=== PATIENT | female | born 2005 | race Caucasian/White ===

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

== ENCOUNTER 2025-01-01 00:03 | Emergency (ER) | payer MEDICAID, SELFPAY ==
--- OUTSIDE RECORDS SUMMARY | 2025-01-01 00:05 | XMS_ITS | Continuity of Care Document ---
Author Organization [facility] Address [address] [address] [place] [address] Phone Care Team Providers Care Gas Engine Operator Compressors Name Role Phone Unavailable Unavailable Unavailable Advance Directives Directive Yes / No Effective Date File Name No Information Encounters Encounter Description Practice Location Reason(s) For Visit Diagnoses Date Provider Providers Copied on Encounter [facility], [address] [address], [place], [place], [id number], [place] tel:[phone] [facility] No Information No Information Referring Provider: Referral Self, USE FOR SELF REFERRALS. Family History Family Member Type Diagnosis Age At Onset No Information Payers Payer name Insurance type Covered alliance party ID Authoriza tion(s) No Information Social History Type Description Quantity Date Captured Comments Sex Female Smoking Status No Information Chief Complaint And Reason For Visit No Information Reason For Referral Reason For Referral No Information History Of Present Illness Encounter Date Complaint History Of Prese nt Illness No Information Functional Status Date Functional Assessmen t No Information Instructions Date Instruction Additional Infor mation No Information Assessments Type Assessment Date No Information Patient Care Teams Name Effective Dates (start - stop) Status Members No Information
--- OUTSIDE RECORDS SUMMARY | 2025-01-01 00:05 | XMS_ITS | Clinical Summary ---
Author Organization [facility] Address [place], [place] [address] Care Team Providers Care Connection Worker Name Role Phone Derik Leahy MD Primary Care Provider Allergies No known active allergies Medications DULoxetine (CYMBALTA) 60 mg Delayed-release capsule Take 60 mg by mouth once daily. Active medication order composer Active Active Problems No known active problems Encounters Date Type Department Care Team Description 11/12/2024 Telephone [facility] [address] [place] [id number] Zenobia Burnett PA Results (LVM instructing to call back to review test results. Call back number left. //Anitra Luke LPN 11/12/2024 1:53 PM ) 11/10/2024 2:45 PM MALE IMPERSONATOR Office Visit [facility] [id number] [place] [phone] Lorri Mason NP Vaginal Problem 11/10/2024 Travel 11/02/2024 2:25 PM MALE IMPERSONATOR Office Visit [facility] [address] [place] [id number] Kalpana Birch MD Ear Problem 11/02/2024 Travel from Last 3 Months Social History Tobacco Use Types Packs/Day Years Used Date Smoking Tobacco: Never Passive Smoke Exposure: Never Smokeless Tobacco: Never Tobacco Cessation:Counseling Given: Not Answered Alcohol Use Standard Drinks/Week Comments Yes 0 (1 standard drink = 0.6 oz pur e alcohol) occassionally Social Connections Answer Date Recorded Do you often feel lonely or isolated from those around you? 0 11/02/2024 Financial Resource Strain Answer Date R ecorded Difficulty of Paying Living Expenses 3 12/28/2024 Difficulty of Paying Living Expenses Not on file 12/28/2024 Food Insecurity Answer Date Recorded Do you worry your food will run out before you are able to buy more? 1 11/02/2024 Transportation Needs Answer Date Record ed Does lack of transportation keep you from medica l appointments? 1 11/02/2024 Does lack of transportation keep you from work, meetings or getting things that you need? 1 11/02/2024 Housing Stability Answer Date Recorded What is your housing situation today? 1 11/02/2024 Utilities Answer Date Recorded Do you have trouble paying f or utilities (for example, heat, electricity, water, phone)? 1 11/02/2024 Comments No Sex and Gender Information Value Date Recorded Sex Assigned at Not on file Legal Sex Female 7:33 AM MALE IMPERSONATOR Gender Identity Not on file Sexual Orientation Not on file Obstetrics History Last Filed Vital Signs Vital Sign Reading Time Taken Comments Blood Pressure 131/85 11/10/2024 2:47 PM MALE IMPERSONATOR Pulse 117 11/10/2024 2:47 PM MALE IMPERSONATOR Temperature 36.2 C (97.2 F) 11/10/2024 2:47 PM MALE IMPERSONATOR Respiratory Rate 16 11/10/2024 2:47 PM MALE IMPERSONATOR Oxygen Saturation 100% 11/10/2024 2:47 PM MALE IMPERSONATOR Inhaled Oxygen Concentration - - Weight 66.8 kg (147 lb 3.2 oz) 11/02/2024 2:41 P M MALE IMPERSONATOR Height - - Body Mass Index - - Plan of Treatment Health Maintenance Due Date Last Done Comments Well Child Check for age 3-20 03/18/2008 Tdap 2016 Depression screening for age 12+ 2017 HIV for age 15-65 2020 HPV series for age 9-26 (1 - 3-dose series) 2020 BMI (ht and wt on same day) for age 18+ 2023 Hepatitis C screening for ag e 18-79 2023 COVID-19 vaccine series ( season) 2024 Influenza for age 9-49 07/28/2024 Chlamydia for age 16-24 11/10/2025 11/10/2024 Meningococcal series for age 11-21 Aged Out No longer eligible based on patient's age to complete this topic Pneumococcal series for age 6-49 Aged Out No longer eligible based on patient's age to complete this topic Procedures Procedure Name Priority Date/Time Associated Diagnosis Comments URINE POCT Routine 11/10/2024 3:58 PM MALE IMPERSONATOR UTI (urinary tract infection), uncomplicated Vaginal itching UA W/ SEDIMENT EXAM REFLEXED PER CRITERIA STAT 11/10/2024 3:56 PM MALE IMPERSONATOR UTI (urinary tract infection), uncomplicated TRICHOMONAS, PAKO, AND BACTERIAL VAGINOSIS BY KENDRA Patient wait 11/10/2024 3:55 PM MALE IMPERSONATOR UTI (urinary tract infection), uncomplicated GC CHLAMYDIA TRACH PROBE Patient wait 11/10/2024 3:55 PM MALE IMPERSONATOR UTI (urinary tract infection), uncomplicated URINE CULTURE Routine 11/10/2024 3:55 PM MALE IMPERSONATOR UTI (urinary tract infection), uncomplicated from Last 3 Months Results * URINE POCT (11/10/2024 3:58 PM MALE IMPERSONATOR) POC HCG URINE NEGATIVE NEGATIVE [facility] Urine URINE SPECIMEN / Unknown 11/10/2024 3:58 PM MALE IMPERSONATOR 11/10/2024 3:58 PM MALE IMPERSONATOR Lorri Mason NP URINE Final Result [facility] [address] [place] [address], [place] [facility] [address] [place] [address] * (ABNORMAL) UA W/ SEDIMENT EXAM REFLEXED PER CRITERIA [07244.2] (11/10/2024 3:56 PM MALE IMPERSONATOR) COLOR YELLOW YELLOW [facility]) APPEARANCE CLEAR CLEAR [facility]) SPECIFIC GRAVITY 1.025 1.001 - 1.035 [facility]) PH 7.0 5.0 - 8.0 [facility]) GLUCOSE NEGATIVE NEGATIVE [facility]) BILIRUBIN NEGATIVE NEGATIVE [facility]) KETONES TRACE(A) NEGATIVE [facility]) OCCULT BLOOD NEGATIVE NEGATIVE [facility]) PROTEIN TRACE(A) NEGATIVE [facility]) NITRITE NEGATIVE NEGATIVE [facility]) LEUKOCYTE ESTERASE 1+(A) NEGATIVE [facility]) WBC UA 6-10(A) < OR = 5 /HPF [facility] RBC UA 0-2 < OR = 2 /HPF [facility]) SQUAMOUS EPITHELIAL CELLS UA 0-5 < OR = 5 /HPF [facility]) BACTERIA UA MANY(A) NONE SEEN /HPF [facility]) COMMENTS UA MODERATE MUCOUS THREADS [facility]) NOTE UA [facility]) Comment: This urine was analyzed for the presence of WBC, RBC, bacteria, casts, and other formed elements. Only those elements seen were reported. Urine URINE SPECIMEN / Unknown 11/10/2024 3:56 PM MALE IMPERSONATOR 11/10/2024 3:57 PM MALE IMPERSONATOR Lorri Mason NP URINE Final Result [facility] [address] [place] [address], [facility] (Urgent Care) [address] [place] [address] * (ABNORMAL) Vaginal-TRICHOMONAS, PAKO, AND BACTERIAL VAGINOSIS BY KENDRA (11/10/2024 3:55 PM MALE IMPERSONATOR) PAKO SPECIES Positive(A) Negative 11/11/20 3:18 PM MALE IMPERSONATOR [facility] PAKO GLABRATA Negative Negative 11/11/2024 3:18 PM MALE IMPERSONATOR [facility] TRICHOMONAS VVA Negative Negative 3:18 PM MALE IMPERSONATOR [facility] BACTERIAL VAGINOSIS Negative Negative 11/11/2024 3:18 PM MALE IMPERSONATOR [facility] Other VAGINAL SWAB / Unknown Non-Blood / Unknown 11/10/2024 3:55 PM MALE IMPERSONATOR 11/10/2024 3:55 PM MALE IMPERSONATOR us Lorri Mason NP MICROBIOLOGY Final Result Performing Organization Address City/[facility]/ZIP Co de Phone Number [facility] [address] [place] [phone], [place] * Vaginal GC CHLAMYDIA TRACH PROBE (11/10/2024 3:55 PM MALE IMPERSONATOR) CHLAMYDIA PROBE Negative 3:50 PM MALE IMPERSONATOR [facility] N GONORRHOEAE PROBE Negative 11/11/2024 3:50 PM MALE IMPERSONATOR [facility] Other VAGINAL SWAB / Unknown Non-Blood / Unknown 11/10/2024 3:55 PM MALE IMPERSONATOR 11/10/2024 3:55 PM MALE IMPERSONATOR us Lorri Mason NP MICROBIOLOGY Final Result [facility] [address] [place] [address], [place] * URINE CULTURE [75922.2] (11/10/2024 3:55 PM MALE IMPERSONATOR) CULTURE <10,000 CFU/mL multiple organisms 11/11/2024 6:56 PM MALE IMPERSONATOR [facility] Urine URINE SPECIMEN / Unknown Non-Blood / Unknown 11/10/2024 3:55 PM MALE IMPERSONATOR 11/10/2024 3:55 PM MALE IMPERSONATOR us Lorri Mason NP MICROBIOLOGY Final Result [facility] [address] [place] [address], [place] from Last 3 Months Insurance [facility] Care Teams Connection Worker Relationship Specialty Start Date End Date Derik Leahy MD [address], [address] [address] PCP - General 11/14/08
[2025-01-01 00:07] VITALS: BP 125/78; PULSE 91; RESP 18; TEMP 36.7; O2SAT 99; BMI 22.9
--- OUTSIDE RECORDS SUMMARY | 2025-01-01 00:35 | XMS_ITS | Clinical Summary ---
Author Organization [facility] Address [place], [place] [address] Care Team Providers Care Evp Of Products & Co Founder Name Role Phone Derik Leahy MD Primary Care Provider Allergies No known active allergies Medications DULoxetine (CYMBALTA) 60 mg Delayed-release capsule Take 60 mg by mouth once daily. Active medication order composer Active Active Problems No known active problems Encounters Date Type Department Care Team Description 11/12/2024 Telephone [facility] [address] [place] [phone] Zenobia Burnett PA Results (LVM instructing to call back to review test results. Call back number left. //Anitra Luke LPN 11/12/2024 1:53 PM ) 11/10/2024 2:45 PM SIGHT MOUNTER Office Visit [facility] [id number] [place] [phone] Lorri Mason NP Vaginal Problem 11/10/2024 Travel 11/02/2024 2:25 PM SIGHT MOUNTER Office Visit [facility] [address] [place] [phone] Kalpana Birch MD Ear Problem 11/02/2024 Travel [...] on file Legal Sex Female 7:33 AM SIGHT MOUNTER Gender Identity Not on file Sexual Orientation Not on file Obstetrics History Last Filed Vital Signs Vital Sign Reading Time Taken Comments Blood Pressure 131/85 11/10/2024 2:47 PM SIGHT MOUNTER Pulse 117 11/10/2024 2:47 PM SIGHT MOUNTER Temperature 36.2 C (97.2 F) 11/10/2024 2:47 PM SIGHT MOUNTER Respiratory Rate 16 11/10/2024 2:47 PM SIGHT MOUNTER Oxygen Saturation 100% 11/10/2024 2:47 PM SIGHT MOUNTER Inhaled Oxygen Concentration - - Weight 66.8 kg (147 lb 3.2 oz) 11/02/2024 2:41 P M SIGHT MOUNTER Height - - Body Mass Index - [...] Comments URINE POCT Routine 11/10/2024 3:58 PM SIGHT MOUNTER UTI (urinary tract infection), uncomplicated Vaginal itching UA W/ SEDIMENT EXAM REFLEXED PER CRITERIA STAT 11/10/2024 3:56 PM SIGHT MOUNTER UTI (urinary tract infection), uncomplicated TRICHOMONAS, PAKO, AND BACTERIAL VAGINOSIS BY KENDRA Patient wait 11/10/2024 3:55 PM SIGHT MOUNTER UTI (urinary tract infection), uncomplicated GC CHLAMYDIA TRACH PROBE Patient wait 11/10/2024 3:55 PM SIGHT MOUNTER UTI (urinary tract infection), uncomplicated URINE CULTURE Routine 11/10/2024 3:55 PM SIGHT MOUNTER UTI (urinary tract infection), uncomplicated from Last 3 Months Results * URINE POCT (11/10/2024 3:58 PM SIGHT MOUNTER) POC HCG URINE NEGATIVE [facility] Urine URINE SPECIMEN / Unknown 11/10/2024 3:58 PM SIGHT MOUNTER 11/10/2024 3:58 PM SIGHT MOUNTER Lorri Mason NP URINE Final Result [facility] [address] [place] [address], [place] [facility] [address] [place] [address] * (ABNORMAL) UA W/ SEDIMENT EXAM REFLEXED PER CRITERIA [30631.2] (11/10/2024 3:56 PM SIGHT MOUNTER) COLOR YELLOW YELLOW [facility]) APPEARANCE CLEAR CLEAR [facility]) SPECIFIC GRAVITY 1.025 1.001 - 1.035 [facility]) PH 7.0 5.0 - 8.0 [facility]) GLUCOSE NEGATIVE NEGATIVE [facility]) BILIRUBIN NEGATIVE NEGATIVE [facility]) KETONES TRACE(A) NEGATIVE [facility]) OCCULT BLOOD NEGATIVE NEGATIVE [facility]) PROTEIN TRACE(A) NEGATIVE [facility]) NITRITE NEGATIVE NEGATIVE [facility]) LEUKOCYTE ESTERASE 1+(A) NEGATIVE [facility]) WBC UA 6-10(A) < OR = 5 /HPF [facility]) RBC UA 0-2 < OR = 2 /HPF [facility]) SQUAMOUS EPITHELIAL CELLS UA 0-5 < OR = 5 /HPF [facility]) BACTERIA UA MANY(A) NONE SEEN /HPF [facility]) COMMENTS UA MODERATE MUCOUS THREADS [facility]) NOTE UA [facility]) Comment: This urine was analyzed for the presence of WBC, RBC, bacteria, casts, and other formed elements. Only those elements seen were reported. Urine URINE SPECIMEN / Unknown 11/10/2024 3:56 PM SIGHT MOUNTER 11/10/2024 3:57 PM SIGHT MOUNTER Lorri Mason NP URINE Final Result [facility] [address] [place] [address], [facility] (Urgent Care) [address] [place] [address] * (ABNORMAL) Vaginal-TRICHOMONAS, PAKO, AND BACTERIAL VAGINOSIS BY KENDRA (11/10/2024 3:55 PM SIGHT MOUNTER) PAKO SPECIES Positive(A) Negative 11/11/20 3:18 PM SIGHT MOUNTER [facility] PAKO GLABRATA Negative Negative 11/11/2024 3:18 PM SIGHT MOUNTER [facility] TRICHOMONAS VVA Negative Negative 3:18 PM SIGHT MOUNTER [facility] BACTERIAL VAGINOSIS Negative Negative 11/11/2024 3:18 PM SIGHT MOUNTER [facility] Other VAGINAL SWAB / Unknown Non-Blood / Unknown 11/10/2024 3:55 PM SIGHT MOUNTER 11/10/2024 3:55 PM SIGHT MOUNTER us Lorri Mason NP MICROBIOLOGY Final Result Performing Organization Address City/[facility]/ZIP Co de Phone Number [facility] [address] [place] [address], [place] * Vaginal GC CHLAMYDIA TRACH PROBE (11/10/2024 3:55 PM SIGHT MOUNTER) CHLAMYDIA PROBE Negative 3:50 PM SIGHT MOUNTER [facility] N GONORRHOEAE PROBE Negative 11/11/2024 3:50 PM SIGHT MOUNTER [facility] Other VAGINAL SWAB / Unknown Non-Blood / Unknown 11/10/2024 3:55 PM SIGHT MOUNTER 11/10/2024 3:55 PM SIGHT MOUNTER us Lorri Mason NP MICROBIOLOGY Final Result [facility] [address] [place] [address], [place] * URINE CULTURE [80340.2] (11/10/2024 3:55 PM SIGHT MOUNTER) CULTURE <10,000 CFU/mL multiple organisms 11/11/2024 6:56 PM SIGHT MOUNTER [facility] Urine URINE SPECIMEN / Unknown Non-Blood / Unknown 11/10/2024 3:55 PM SIGHT MOUNTER 11/10/2024 3:55 PM SIGHT MOUNTER us Lorri Mason NP MICROBIOLOGY Final Result [facility] [address] [place] [address], [place] from Last 3 Months Insurance [facility] Care Teams [employer] Founder Relationship Specialty Start Date End Date Derik Leahy MD [address], [address] [address] PCP - General 11/14/08
--- OUTSIDE RECORDS SUMMARY | 2025-01-01 00:35 | XMS_ITS | Continuity of Care Document ---
Author Organization [facility] Address [address] [address] [place] [address] Phone Care Team Providers Care Certified Coatings Inspector Name Role Phone Unavailable Unavailable Unavailable Advance Directives Directive Yes / No Effective Date File Name No Information Encounters Encounter Description Practice Location Reason(s) For Visit Diagnoses Date Provider Providers Copied on Encounter [facility], [address] [address], [place], [place], [id number], [place] tel:[phone] [facility] No Information No Information Referring Provider: Referral Self, USE FOR SELF REFERRALS. Family History Family Member Type Diagnosis Age At Onset No Information Payers Payer name Insurance type Covered constitution party ID Authoriza tion(s) No Information Social [...]
--- NOTE | 2025-01-01 00:40 | ED.GENADULT ---
HPI - General Adult General Date Seen: 01/01/25 Chief complaint: Unspecified Complaint, Adult Stated complaint: Loosing sensation right leg Time Seen by Provider: 01/01/25 00:13 Source: patient Mode of arrival: ambulatory Limitations: no limitations History of Present Illness HPI narrative: Patient is a 19-year-old female who comes in with a week of intermittent right thigh numbness. There has never been any pain. No injury. She did notices initially after a lying on her right thigh all night about one week ago. She did have a little bit of pain in her low back when driving few days ago but that has resolved. When she called her mother she was very concerned that this could be a blood clot despite the fact that she has had no warmth, redness, swelling. She is on OCPs. No chest pains or shortness of breath. Related Data Previous Rx's ?Medication ?Instructions ?Recorded L norgest/E estradiol-E estrad 0.1 1 tab PO DAILY #182 tabs 12/16/24 mg-20 mcg (84)/10 mcg (7) tabs,3mos duloxetine 60 mg capsule,delayed 60 mg PO QDAY #90 caps 12/25/24 release Allergies Allergy/AdvReac Type Severity Reaction Status Date / Time No Known Allergies Allergy Unknown Verified 01/01/25 00:09 Review of Systems Narrative: You of systems is outlined above otherwise noted to be negative. [facility] Medical History (Updated 01/01/25 @ 00:40 by Marcus Ayala MD) Panic attack ?F41.0 - Panic disorder [episodic paroxysmal anxiety] (ICD-10) Acne ?L70.9 - Acne, unspecified (ICD-10) Contraception management ?Z30.9 - Encounter for contraceptive management, unspecified (ICD-10) Anxiety ?F41.9 - Anxiety disorder, unspecified (ICD-10) Surgical History (Updated 01/01/25 @ 00:11 by Stef Gill RN) No significant past surgical history Status post tonsillectomy and adenoidectomy ?Z90.89 - Acquired absence of other organs (ICD-10) Social History Smoking Status: Never smoker Do you use any of these nicotine containing products: Vaping Products Second hand tobacco smoke exposure: No How often do you have a drink containing alcohol: never AUDIT-C Alcohol total score: 0 Non-prescribed substance use: denies use Exam Narrative: Exam Narrative: Vitals noted. HEENT: Conjunctiva clear. Neck is supple without adenopathy. Lungs: Clear to auscultation in all cade. No wheezes, rales, rhonchi. Heart: Regular rate and rhythm without murmur. Extremities: No cyanosis or edema. Good distal pulses. Negative Maynor sign. No tenderness in the SI joints. Straight leg raising is negative. Skin: No abnormalities noted of the exposed skin. Neurologic: Awake, alert, fully oriented. She describes decreased sensation on the anterior and lateral portion of the right thigh. No tenderness. No skin changes. Const: Vital Signs, click to edit/add: Vital Signs - 24 hr 01/01/25 00:07 Temperature 98.0 F Pulse Rate [Right Pulse Oximeter] 91 Respiratory Rate 18 Blood Pressure [Ri ght Upper Arm] 125/78 Pulse Oximetry 99 Oxygen Delivery Me thod Room Air Course Course ED Course: Patient seen and examined. I provided her some detailed information regarding meralgia paresthetica from Up-To-Date for her to read over. Her mother is very concerned that this could be a blood clot in I did order a D-dimer. Her only risk factor is the fact that she is on OCPs. Reevaluation(s) Reevaluation #1: D-dimer is negative. Vital Signs Vital signs: Initial Vital Signs Temperature 98.0 F 01/01/25 00:07 Temperature Source Temporal Artery Scan 01/01/25 00:07 Pulse Rate 91 01/01/25 00:07 Respiratory Rate 18 01/01/25 00:07 Blood Pressure 125/78 01/01/25 00:07 Blood Pressure Mean 93 01/01/25 00:07 Blood Pressure Position Sitting 01/01/25 00:07 Pulse Oximetry 99 01/01/25 00:07 Oxygen Delivery Method Room Air 01/01/25 00:07 Vital Signs Temperature 98.0 F 01/01/25 00:07 Pulse Rate 91 01/01/25 00:07 Respiratory Rate 18 01/01/25 00:07 Blood Pressure 125/78 01/01/25 00:07 Pulse Oximetry 99 01/01/25 00:07 Oxygen Delivery Method Room Air 01/01/25 00:07 Temperature 98.0 F 01/01/25 00:07 Pulse Rate 91 01/01/25 00:07 Respiratory Rate 18 01/01/25 00:07 Blood Pressure 125/78 01/01/25 00:07 Pulse Oximetry 99 01/01/25 00:07 Oxygen Delivery Method Room Air 01/01/25 00:07 Medical Decision Making Lab Data Labs: Lab Results 01/01/25 Range/Units 00:30 D-Dimer Quant (PE/DVT) 0.13 (0.00-0.50) ug/ml Discharge Plan Discharge Clinical Impression: Meralgia paresthetica of right side Patient Disposition: Home, Self-Care Condition: Stable Instructions: Meralgia Paresthetica (ED) Additional Instructions: You do NOT have a blood clot. Ibuprofen, avoid compression to the lateral calf. Follow up for leg pain, swelling, redness. Prescriptions: No Action L norgest/e.estradiol-e.estrad 0.1 mg-20 mcg (84)/10 mcg (7) tablets,dose pack,3 month 1 tab PO DAILY Qty: 182 0RF duloxetine 60 mg capsule,delayed release(DR/EC) 60 mg PO QDAY Qty: 90 0RF Rx Instructions: Take 60mg (1 capsule) by mouth once a day Follow Up/Referrals: Jocy Leiva MD [Primary Care Provider] - Stand Alone Forms: MyHealth Info Instructions
[2025-01-01 01:04] LABS: D Dimer Quantitative* 0.13 ug/ml (0.00-0.50)
[2025-01-01 01:19] VITALS: BP 118/68; PULSE 85; RESP 18; TEMP 36.7; O2SAT 99
[2025-01-01 01:20] VITALS: BP 118/68; PULSE 85; RESP 18; TEMP 36.7
== END 2025-01-01 01:20 | disposition home or self-care (01) ==
PROVIDERS: Emergency Provider Family Medicine; PCP Family Medicine
DX: G57.11 Meralgia paresthetica, right lower limb (principal)
CPT/HCPCS: 36415; 85379; 99281; 99283